=== PATIENT | male | born 1980 | race Caucasian/White ===

== ENCOUNTER 2016-07-08 18:00 | Inpatient (IN) | payer MEDICAID, SELFPAY ==
[~2016-07-08] VITALS: Ht 180.3 cm; Wt 77.9 kg
[~2016-07-08 18:00] MED LIST: CLON.1 PO
[2016-07-08] MEDS ORDERED: OLANZapine 5 MG RAPDIS TABLET PO PRN (19:00)
[2016-07-08 19:16] VITALS: BP 125/74
[2016-07-08] MEDS: LORazepam 2 MG TABLET PO PRN (19:30)
[2016-07-08] MEDS ORDERED: TraMADol HCL 50 MG TABLET PO PRN (20:15)
[2016-07-08] MEDS ORDERED: ACETAMINOPHEN 325 MG TABLET PO PRN (20:15)
[2016-07-08] MEDS ORDERED: IBUPROFEN 600 MG TABLET PO PRN (20:15)
[2016-07-08] MEDS: DIVALPROEX SODIUM 500 MG ER TABLET PO SCH (20:27)
[2016-07-08] MEDS: NICOTINE 21 MG/24 HOUR PATCH TD SCH (20:27)
[2016-07-09] VITALS (7 sets, daily range): BP systolic 121–144; BP diastolic 52–91
[2016-07-09] MEDS: LORazepam 2 MG TABLET PO PRN ×2 (04:14→08:51)
[2016-07-09 06:36] LABS: BASOPHILS # (AUTO) 0.02 K/uL (0.00-0.20); BASOPHILS % (AUTO) 0.3 % (0.0-2.0); EOSINOPHILS # (AUTO) 0.13 K/uL (0.00-0.70); EOSINOPHILS % (AUTO) 1.71 % (1.0-6.0); HEMATOCRIT 40.2 % (41-53); HEMOGLOBIN 13.7 g/dL (13.5-17.5); LYMPHOCYTES # (AUTO) 3.2 K/uL (1.0-4.8); LYMPHOCYTES % (AUTO) 41.7 % (22.0-44.0); MEAN CORPUSCULAR HEMOGLOBIN 30.6 pg (26.0-34.0); MEAN CORPUSCULAR HGB CONC 34.2 G/dL (31.0-37.0); MEAN CORPUSCULAR VOLUME 89 fL (80-100); MONOCYTES # (AUTO) 0.7 K/uL (0.1-1.0); MONOCYTES % (AUTO) 9.4 % (2.0-9.0); NEUTROPHILS # (AUTO) 3.6 K/uL (1.8-7.7); NEUTROPHILS % (AUTO) 46.9 % (40.0-70.0); PLATELET COUNT (AUTO) 313 K/uL (150-450); RED BLOOD CELL COUNT(AUTO) 4.49 MIL/uL (4.50-5.90); RED CELL DISTRIBUTION WIDTH 14.2 % (11.5-14.5); WHITE BLOOD COUNT (AUTO) 7.7 K/uL (4.5-11.0)
[2016-07-09 07:09] LABS: ALANINE AMINOTRANSFERASE 61 U/L (12-78); ALBUMIN 3.5 g/dL (3.4-5.0); ANION GAP 7 mmol/L (8-16); ASPARTATE AMINOTRANSFERASE 19 U/L (15-37); BILIRUBIN,TOTAL 0.3 mg/dL (0.1-1.0); CALCIUM, TOTAL 8.1 mg/dL (8.8-10.5); CARBON DIOXIDE 30 mmol/L (22-29); CHLORIDE 105 mmol/L (98-107); CREATININE 0.88 mg/dL (0.60-1.30); GLOMERULAR FILTR. RATE CALC > 60 mL/min (>60); POTASSIUM 3.9 mmol/L (3.5-5.1); SODIUM SERUM 142 mmol/L (136-145); TOTAL PROTEIN, SERUM 6.5 g/dL (6.4-8.2); UREA NITROGEN, BLOOD 24 mg/dL (7-18)
[2016-07-09 07:33] LABS: APPEARANCE,URINE CLEAR (CLEAR); GLUCOSE, URINE (UA) NEGATIVE (NEGATIVE); KETONES,URINE NEGATIVE (NEGATIVE); LEUKOCYTE ESTERASE ,URINE NEGATIVE (NEGATIVE); OCCULT BLOOD,URINE NEGATIVE (NEGATIVE); PH,URINE 6.5 (5.0-8.0); PROTEIN,URINE NEGATIVE (NEGATIVE)
[2016-07-09 07:34] LABS: ADD UA MICROSCOPIC NO
[2016-07-09] MEDS: NICOTINE 21 MG/24 HOUR PATCH TD SCH (08:51)
[2016-07-09] MEDS ORDERED: ACETAMINOPHEN 325 MG TABLET PO PRN (09:30)
[2016-07-09] MEDS ORDERED: HydrOXYzine PAMOATE 50 MG CAPSULE PO PRN (09:30)
[2016-07-09] MEDS ORDERED: LOPERAMIDE HCL 2 MG CAPSULE PO PRN (09:30)
[2016-07-09] MEDS ORDERED: TUBERCULIN, PURIFIED PROTEIN DERIVATIVE 5 TU/0.1 ML SYG ID ONE (09:30)
[2016-07-09] MEDS ORDERED: GuaiFENesin/D-METHORPHAN [SUGAR-FREE] 200-20MG/10 ML SYRUP UDCUP PO PRN (09:30)
[2016-07-09] MEDS ORDERED: MAG HYDROX/AL HYDROX/SIMETH ES 30 ML SUSPENSION UDCUP PO PRN (09:30)
[2016-07-09] MEDS ORDERED: MAGNESIUM HYDROXIDE SUSPENSION 30 ML UDCUP PO PRN (09:30)
[2016-07-09] MEDS ORDERED: PROMETHAZINE HCL 25 MG TABLET PO PRN (09:30)
[2016-07-09] MEDS: DIAZEPAM 10 MG TABLET PO PRN ×3 (12:51→21:40)
[2016-07-09] MEDS: THIAMINE HCL 100 MG TABLET PO SCH (17:08)
[2016-07-09] MEDS: DIVALPROEX SODIUM 500 MG ER TABLET PO SCH (21:38)
[2016-07-09] MEDS: GABAPENTIN 100 MG CAPSULE PO SCH (21:41)
[2016-07-09] MEDS: ZOLPIDEM TARTRATE 10 MG TABLET PO PRN (23:51)
[2016-07-10] VITALS (8 sets, daily range): BP systolic 106–148; BP diastolic 56–100
[2016-07-10] MEDS: DIAZEPAM 10 MG TABLET PO PRN (04:50)
[2016-07-10] MEDS ORDERED: DIAZEPAM 10 MG TABLET PO PRN (07:00)
[2016-07-10] MEDS ORDERED: ARIPiprazole 10 MG TABLET PO SCH (09:00)
[2016-07-10] MEDS: NALTREXONE HCL 50 MG TABLET PO SCH (09:06)
[2016-07-10] MEDS: FOLIC ACID 1 MG TABLET PO SCH (09:06)
[2016-07-10] MEDS: MULTIVITAMINS WITH MINERALS, THERAPEUTIC TABLET PO SCH (09:06)
[2016-07-10] MEDS: DIAZEPAM 10 MG TABLET PO SCH ×4 (09:06→21:22)
[2016-07-10] MEDS: DULoxetine HCL 20 MG CAPSULE PO SCH (09:06)
[2016-07-10] MEDS: GABAPENTIN 100 MG CAPSULE PO SCH ×4 (09:06→21:21)
[2016-07-10] MEDS: THIAMINE HCL 100 MG TABLET PO SCH ×2 (09:06→16:12)
[2016-07-10] MEDS: NICOTINE 21 MG/24 HOUR PATCH TD SCH (10:15)
[2016-07-10] MEDS: LORazepam 2 MG TABLET PO PRN (13:35)
[2016-07-10] MEDS: DIVALPROEX SODIUM 500 MG ER TABLET PO SCH (21:21)
[2016-07-11] MEDS: LORazepam 2 MG TABLET PO PRN ×2 (02:15→11:28)
[2016-07-11 02:30] VITALS: BP 130/62
[2016-07-11 08:02] VITALS: BP 123/70
[2016-07-11] MEDS: DULoxetine HCL 20 MG CAPSULE PO SCH (08:09)
[2016-07-11] MEDS: THIAMINE HCL 100 MG TABLET PO SCH ×2 (08:09→17:24)
[2016-07-11] MEDS: MULTIVITAMINS WITH MINERALS, THERAPEUTIC TABLET PO SCH (08:09)
[2016-07-11] MEDS: DIAZEPAM 10 MG TABLET PO SCH ×4 (08:10→21:12)
[2016-07-11] MEDS: FOLIC ACID 1 MG TABLET PO SCH (08:10)
[2016-07-11] MEDS: GABAPENTIN 100 MG CAPSULE PO SCH ×3 (08:10→17:24)
[2016-07-11] MEDS: NICOTINE 21 MG/24 HOUR PATCH TD SCH (08:12)
[2016-07-11] MEDS: NALTREXONE HCL 50 MG TABLET PO SCH (11:26)
[2016-07-11 16:00] VITALS: BP 136/97
[2016-07-11] MEDS: HYDROCORTISONE 1% 30 GM OINTMENT TP SCH (17:25)
[2016-07-11 18:30] VITALS: BP 128/81
[2016-07-11] MEDS: GABAPENTIN 300 MG CAPSULE PO SCH (21:12)
[2016-07-11] MEDS: DIVALPROEX SODIUM 500 MG ER TABLET PO SCH (21:12)
[2016-07-12] MEDS: LORazepam 2 MG TABLET PO PRN ×2 (03:28→14:43)
[2016-07-12 07:00] VITALS: BP 125/78
[2016-07-12] MEDS ORDERED: DIAZEPAM 5 MG TABLET PO PRN (07:00)
[2016-07-12 07:01] VITALS: BP 125/78
[2016-07-12 08:00] VITALS: BP 123/78
[2016-07-12] MEDS: GABAPENTIN 300 MG CAPSULE PO SCH ×2 (08:32→12:13)
[2016-07-12] MEDS: DULoxetine HCL 20 MG CAPSULE PO SCH (08:32)
[2016-07-12] MEDS: MULTIVITAMINS WITH MINERALS, THERAPEUTIC TABLET PO SCH (08:32)
[2016-07-12] MEDS: THIAMINE HCL 100 MG TABLET PO SCH ×2 (08:32→16:17)
[2016-07-12] MEDS: FOLIC ACID 1 MG TABLET PO SCH (08:33)
[2016-07-12] MEDS: NALTREXONE HCL 50 MG TABLET PO SCH (08:33)
[2016-07-12] MEDS: DIAZEPAM 5 MG TABLET PO SCH ×4 (08:35→20:14)
[2016-07-12] MEDS: NICOTINE 21 MG/24 HOUR PATCH TD SCH (08:35)
[2016-07-12] MEDS: HYDROCORTISONE 1% 30 GM OINTMENT TP SCH ×2 (08:37→16:17)
[2016-07-12] MEDS: GABAPENTIN 400 MG CAPSULE PO SCH ×3 (13:00→20:15)
[2016-07-12 16:30] VITALS: BP 115/69
[2016-07-12] MEDS: DIVALPROEX SODIUM 500 MG ER TABLET PO SCH (20:14)
[2016-07-12] MEDS: PRAZOSIN HCL 1 MG CAPSULE PO SCH (20:15)
[2016-07-13 05:00] VITALS: BP 119/71
[2016-07-13] MEDS: LORazepam 2 MG TABLET PO PRN ×4 (05:13→20:06)
[2016-07-13] MEDS ORDERED: DIAZEPAM 5 MG TABLET PO PRN (07:00)
[2016-07-13 08:49] VITALS: BP 128/72
[2016-07-13] MEDS: GABAPENTIN 400 MG CAPSULE PO SCH ×4 (08:49→20:03)
[2016-07-13] MEDS: FOLIC ACID 1 MG TABLET PO SCH (08:49)
[2016-07-13] MEDS: NALTREXONE HCL 50 MG TABLET PO SCH (08:49)
[2016-07-13] MEDS: THIAMINE HCL 100 MG TABLET PO SCH ×2 (08:49→16:10)
[2016-07-13] MEDS: DULoxetine HCL 20 MG CAPSULE PO SCH (08:49)
[2016-07-13] MEDS: MULTIVITAMINS WITH MINERALS, THERAPEUTIC TABLET PO SCH (08:52)
[2016-07-13] MEDS: LIDOCAINE HCL 5% TRANSDERMAL PATCH TD SCH (08:57)
[2016-07-13] MEDS: NICOTINE 21 MG/24 HOUR PATCH TD SCH (08:59)
[2016-07-13] MEDS: HYDROCORTISONE 1% 30 GM OINTMENT TP SCH ×2 (08:59→16:13)
[2016-07-13] MEDS: -LIDODERM PATCH NOTE- MISC SCH ×2 (09:00)
[2016-07-13 16:40] VITALS: BP 134/93
[2016-07-13] MEDS: PRAZOSIN HCL 1 MG CAPSULE PO SCH (20:03)
[2016-07-13] MEDS: DIVALPROEX SODIUM 500 MG ER TABLET PO SCH (20:47)
[2016-07-13] MEDS: ZOLPIDEM TARTRATE 10 MG TABLET PO PRN (22:22)
[2016-07-14] MEDS: DULoxetine HCL 20 MG CAPSULE PO SCH (08:01)
[2016-07-14] MEDS: LIDOCAINE HCL 5% TRANSDERMAL PATCH TD SCH (08:02)
[2016-07-14] MEDS: FOLIC ACID 1 MG TABLET PO SCH (08:02)
[2016-07-14] MEDS: GABAPENTIN 400 MG CAPSULE PO SCH ×4 (08:02→20:18)
[2016-07-14] MEDS: MULTIVITAMINS WITH MINERALS, THERAPEUTIC TABLET PO SCH (08:02)
[2016-07-14] MEDS: NALTREXONE HCL 50 MG TABLET PO SCH (08:02)
[2016-07-14] MEDS: THIAMINE HCL 100 MG TABLET PO SCH ×2 (08:02→17:07)
[2016-07-14 08:05] VITALS: BP 126/86
[2016-07-14] MEDS: -LIDODERM PATCH NOTE- MISC SCH ×2 (08:05)
[2016-07-14] MEDS: NICOTINE 21 MG/24 HOUR PATCH TD SCH (08:07)
[2016-07-14] MEDS: LORazepam 2 MG TABLET PO PRN ×3 (08:12→19:00)
[2016-07-14] MEDS: HYDROCORTISONE 1% 30 GM OINTMENT TP SCH ×2 (08:15→17:07)
[2016-07-14 16:17] VITALS: BP 108/65
[2016-07-14] MEDS: DIVALPROEX SODIUM 500 MG ER TABLET PO SCH (20:06)
[2016-07-14] MEDS: PRAZOSIN HCL 1 MG CAPSULE PO SCH (20:06)
[2016-07-15] MEDS: DULoxetine HCL 20 MG CAPSULE PO SCH (08:03)
[2016-07-15] MEDS: FOLIC ACID 1 MG TABLET PO SCH (08:03)
[2016-07-15] MEDS: NALTREXONE HCL 50 MG TABLET PO SCH (08:03)
[2016-07-15] MEDS: MULTIVITAMINS WITH MINERALS, THERAPEUTIC TABLET PO SCH (08:04)
[2016-07-15] MEDS: THIAMINE HCL 100 MG TABLET PO SCH ×2 (08:04→16:35)
[2016-07-15] MEDS: GABAPENTIN 400 MG CAPSULE PO SCH ×2 (08:04→12:43)
[2016-07-15] MEDS: LORazepam 2 MG TABLET PO PRN ×2 (08:05→12:44)
[2016-07-15] MEDS: LIDOCAINE HCL 5% TRANSDERMAL PATCH TD SCH (08:07)
[2016-07-15] MEDS: -LIDODERM PATCH NOTE- MISC SCH ×2 (08:10)
[2016-07-15] MEDS: NICOTINE 21 MG/24 HOUR PATCH TD SCH (08:13)
[2016-07-15 08:17] VITALS: BP 123/89
[2016-07-15] MEDS: HYDROCORTISONE 1% 30 GM OINTMENT TP SCH ×2 (09:00→16:37)
[2016-07-15] MEDS ORDERED: PRAZ1 PO (16:23)
[2016-07-15] MEDS ORDERED: GABA-533 PO (16:23)
[2016-07-15] MEDS ORDERED: DULO20CA30 PO (16:23)
[2016-07-15] MEDS ORDERED: NALT50 PO (16:23)
[2016-07-15] MEDS ORDERED: DIVA500T52 PO (16:23)
[2016-07-15] MEDS ORDERED: LIDOP TD (16:47)
[2016-07-15] MEDS ORDERED: HC1C1.5 TP (16:48)
[2016-07-15] MEDS ORDERED: GABAPENTIN 300 MG CAPSULE PO SCH (17:00)
[2016-07-15 18:37] VITALS: BP 131/76
[2016-07-16] MEDS ORDERED: DULoxetine HCL 60 MG CAPSULE PO SCH (09:00)
== END 2016-07-15 19:45 | disposition home or self-care (01) | DRG 751 ==
LOC: 3EI 18:00
PROVIDERS: ADMIT Psychiatry & Neurology Psychiatry; ATTEND Psychiatry & Neurology Psychiatry
DX: F33.2 Major depressive disorder, recurrent severe without psychotic features (principal); R45.851 Suicidal ideations; G40.409 Other generalized epilepsy and epileptic syndromes, not intractable, without status epilepticus; F41.9 Anxiety disorder, unspecified; G89.29 Other chronic pain; M54.9 Dorsalgia, unspecified; F41.0 Panic disorder [episodic paroxysmal anxiety]; F43.10 Post-traumatic stress disorder, unspecified; K21.9 Gastro-esophageal reflux disease without esophagitis; F17.210 Nicotine dependence, cigarettes, uncomplicated; Z91.19 Patient's noncompliance with other medical treatment and regimen; Z59.0 Homelessness; Z88.0 Allergy status to penicillin; Z79.899 Other long term (current) drug therapy; Z91.5 Personal history of self-harm
CPT/HCPCS: 87081

== ENCOUNTER 2016-08-01 16:41 | Inpatient (IN) | payer MEDICAID ==
[~2016-08-01] VITALS: Ht 180.3 cm; Wt 77.5 kg
[~2016-08-01 16:41] MED LIST changes: -CLON.1 PO; +DIVA500T52 PO; +DULO20CA30 PO; +GABA-533 PO; +HC1C1.5 TP; +LIDOP TD; +NALT50 PO; +PRAZ1 PO
[2016-08-01] MEDS ORDERED: ZOLPIDEM TARTRATE 10 MG TABLET PO PRN (19:00)
[2016-08-01] MEDS ORDERED: HALOPERIDOL 5 MG TABLET PO PRN (19:00)
[2016-08-01] MEDS: LORazepam 2 MG TABLET PO PRN (20:51)
[2016-08-01 21:39] VITALS: BP 114/62
[2016-08-02 06:58] VITALS: BP 138/60
[2016-08-02 08:23] LABS: BASOPHILS % (AUTO) 0.4 % (0.0-2.0); EOSINOPHILS % (AUTO) 2.6 % (1.0-6.0); HEMATOCRIT 39.6 % (41-53); HEMOGLOBIN 13.1 g/dL (13.5-17.5); LYMPHOCYTES % (AUTO) 44.3 % (22.0-44.0); MEAN CORPUSCULAR HEMOGLOBIN 30.4 pg (26.0-34.0); MEAN CORPUSCULAR HGB CONC 33.1 G/dL (31.0-37.0); MEAN CORPUSCULAR VOLUME 92 fL (80-100); MONOCYTES # (AUTO) 0.5 K/uL (0.1-1.0); MONOCYTES % (AUTO) 7.6 % (2.0-9.0); NEUTROPHILS # (AUTO) 3.1 K/uL (1.8-7.7); NEUTROPHILS % (AUTO) 45.1 % (40.0-70.0); PLATELET COUNT (AUTO) 280 K/uL (150-450); RED BLOOD CELL COUNT(AUTO) 4.31 MIL/uL (4.50-5.90); RED CELL DISTRIBUTION WIDTH 14.2 % (11.5-14.5); WHITE BLOOD COUNT (AUTO) 6.8 K/uL (4.5-11.0)
[2016-08-02 08:33] LABS: HEMOGLOBIN A1C 5.3 % (4.5-6.2)
[2016-08-02 08:50] LABS: ALANINE AMINOTRANSFERASE 28 U/L (12-78); ALBUMIN 3.6 g/dL (3.4-5.0); ANION GAP 8 mmol/L (8-16); ASPARTATE AMINOTRANSFERASE 11 U/L (15-37); BILIRUBIN,TOTAL 0.3 mg/dL (0.1-1.0); CALCIUM, TOTAL 8.6 mg/dL (8.8-10.5); CARBON DIOXIDE 29 mmol/L (22-29); CHLORIDE 104 mmol/L (98-107); CHOL/HDL RATIO 5.6 (4.2-7.3); CREATININE 0.94 mg/dL (0.60-1.30); GLOMERULAR FILTR. RATE CALC > 60 mL/min (>60); POTASSIUM 4.1 mmol/L (3.5-5.1); SODIUM SERUM 141 mmol/L (136-145); THYROID STIMULATING HORMONE 2.62 uIU/mL (0.36-3.74); TOTAL PROTEIN, SERUM 6.2 g/dL (6.4-8.2); UREA NITROGEN, BLOOD 26 mg/dL (7-18)
[2016-08-02] MEDS: LORazepam 2 MG TABLET PO PRN ×2 (08:50→14:29)
[2016-08-02 09:06] VITALS: BP 122/71
[2016-08-02] MEDS: NICOTINE 21 MG/24 HOUR PATCH TD SCH (13:05)
[2016-08-02 16:20] VITALS: BP 111/65
[2016-08-02] MEDS: HYDROCORTISONE 1% 30 GM OINTMENT TP SCH (16:38)
[2016-08-02] MEDS ORDERED: HydrOXYzine PAMOATE 25 MG CAPSULE PO PRN (17:30)
[2016-08-02] MEDS: OLANZapine 5 MG TABLET PO SCH (20:32)
[2016-08-03 00:27] VITALS: BP 102/64
[2016-08-03] MEDS: NICOTINE 21 MG/24 HOUR PATCH TD SCH (08:36)
[2016-08-03] MEDS: FLUoxetine HCL 20 MG CAPSULE PO SCH (08:36)
[2016-08-03] MEDS: HYDROCORTISONE 1% 30 GM OINTMENT TP SCH ×2 (08:44→16:32)
[2016-08-03 08:55] VITALS: BP 112/63
[2016-08-03] MEDS: LORazepam 1 MG TABLET PO PRN ×3 (12:30→21:25)
[2016-08-03 16:00] VITALS: BP 115/60
[2016-08-03] MEDS: OLANZapine 5 MG TABLET PO SCH (20:01)
[2016-08-04 06:39] VITALS: BP 110/69
[2016-08-04] MEDS: LORazepam 1 MG TABLET PO PRN ×4 (06:47→20:41)
[2016-08-04] MEDS: FLUoxetine HCL 20 MG CAPSULE PO SCH (08:29)
[2016-08-04] MEDS: HYDROCORTISONE 1% 30 GM OINTMENT TP SCH ×2 (08:29→18:15)
[2016-08-04] MEDS: NICOTINE 21 MG/24 HOUR PATCH TD SCH (08:29)
[2016-08-04 08:37] VITALS: BP 126/64
[2016-08-04 16:00] VITALS: BP 121/71
[2016-08-04] MEDS: OLANZapine 5 MG TABLET PO SCH (20:27)
[2016-08-04] MEDS ORDERED: ACETAMINOPHEN 325 MG TABLET PO PRN (20:45)
[2016-08-04] MEDS: IBUPROFEN 600 MG TABLET PO PRN (21:28)
[2016-08-05 00:23] VITALS: BP 118/73
[2016-08-05] MEDS: LORazepam 1 MG TABLET PO PRN ×4 (06:31→21:49)
[2016-08-05] MEDS: NICOTINE 21 MG/24 HOUR PATCH TD SCH (08:23)
[2016-08-05] MEDS: FLUoxetine HCL 20 MG CAPSULE PO SCH (08:23)
[2016-08-05] MEDS: HYDROCORTISONE 1% 30 GM OINTMENT TP SCH ×2 (08:25→16:22)
[2016-08-05 08:28] VITALS: BP 114/62
[2016-08-05 16:05] VITALS: BP 135/77
[2016-08-05] MEDS: OLANZapine 10 MG TABLET PO SCH (20:18)
[2016-08-06 06:42] VITALS: BP 135/85
[2016-08-06] MEDS: LORazepam 1 MG TABLET PO PRN ×4 (06:42→20:28)
[2016-08-06 08:23] VITALS: BP 131/70
[2016-08-06] MEDS: FLUoxetine HCL 20 MG CAPSULE PO SCH (08:42)
[2016-08-06] MEDS: HYDROCORTISONE 1% 30 GM OINTMENT TP SCH ×2 (08:42→16:25)
[2016-08-06] MEDS: NICOTINE 21 MG/24 HOUR PATCH TD SCH (08:42)
[2016-08-06 16:04] VITALS: BP 144/83
[2016-08-06] MEDS: LIDOCAINE HCL 5% TRANSDERMAL PATCH TD SCH (16:25)
[2016-08-06] MEDS: OLANZapine 10 MG TABLET PO SCH (20:24)
[2016-08-06] MEDS: -LIDODERM PATCH NOTE- MISC SCH ×2 (20:30)
[2016-08-07 04:33] VITALS: BP_SYST 128; BP_DIAS 100; BP_DIAS 98
[2016-08-07] MEDS ORDERED: ONDANSETRON HCL 4 MG TABLET PO PRN (07:15)
[2016-08-07] MEDS ORDERED: PROMETHAZINE HCL 25 MG/ML VIAL IM PRN (07:15)
[2016-08-07 08:18] VITALS: BP 117/79
[2016-08-07] MEDS: LORazepam 1 MG TABLET PO PRN ×3 (08:21→21:24)
[2016-08-07] MEDS: FLUoxetine HCL 20 MG CAPSULE PO SCH (08:21)
[2016-08-07] MEDS: NICOTINE 21 MG/24 HOUR PATCH TD SCH (08:22)
[2016-08-07] MEDS: HYDROCORTISONE 1% 30 GM OINTMENT TP SCH ×2 (08:22→17:09)
[2016-08-07] MEDS: LIDOCAINE HCL 5% TRANSDERMAL PATCH TD SCH (08:23)
[2016-08-07 10:25] VITALS: BP 114/70
[2016-08-07] MEDS: IBUPROFEN 600 MG TABLET PO PRN (10:26)
[2016-08-07 11:26] VITALS: BP 115/75
[2016-08-07 16:24] VITALS: BP 123/65
[2016-08-07] MEDS: TraMADol HCL 50 MG TABLET PO PRN ×2 (17:21→23:41)
[2016-08-07] MEDS: OLANZapine 10 MG TABLET PO SCH (20:07)
[2016-08-07] MEDS: -LIDODERM PATCH NOTE- MISC SCH ×2 (20:13)
[2016-08-08 00:28] VITALS: BP 122/64
[2016-08-08] MEDS: TraMADol HCL 50 MG TABLET PO PRN ×2 (06:15→13:33)
[2016-08-08] MEDS: LORazepam 1 MG TABLET PO PRN ×2 (08:15→15:59)
[2016-08-08] MEDS: NICOTINE 21 MG/24 HOUR PATCH TD SCH (08:16)
[2016-08-08] MEDS: HYDROCORTISONE 1% 30 GM OINTMENT TP SCH ×2 (08:18→17:00)
[2016-08-08] MEDS: LIDOCAINE HCL 5% TRANSDERMAL PATCH TD SCH (08:20)
[2016-08-08 08:49] VITALS: BP 137/84
[2016-08-08] MEDS ORDERED: FLUoxetine HCL 20 MG CAPSULE PO SCH (09:00)
[2016-08-08 13:34] VITALS: BP 123/74
[2016-08-08 16:28] VITALS: BP 140/81
[2016-08-08] MEDS ORDERED: FLUO40CA7 PO (17:13)
[2016-08-08] MEDS ORDERED: OLAN15TA2 PO (17:13)
[2016-08-08] MEDS: -LIDODERM PATCH NOTE- MISC SCH ×2 (21:15)
[2016-08-08] MEDS: OLANZapine 10 MG TABLET PO SCH (21:15)
== END 2016-08-08 21:33 | disposition home or self-care (01) | DRG 750 ==
LOC: B2S 19:03 → EDSTATUS 19:05
PROVIDERS: ADMIT Psychiatry & Neurology Psychiatry; ATTEND Psychiatry & Neurology Psychiatry
DX: F25.1 Schizoaffective disorder, depressive type (principal); R56.9 Unspecified convulsions; R45.851 Suicidal ideations; F60.3 Borderline personality disorder; F17.220 Nicotine dependence, chewing tobacco, uncomplicated; R45.87 Impulsiveness; Z53.29 Procedure and treatment not carried out because of patient's decision for other reasons; Z88.8 Allergy status to other drugs, medicaments and biological substances; Z91.5 Personal history of self-harm
CPT/HCPCS: 83036; 84439; 84443; 87081; Q0162